=== PATIENT | female | born 1965 | race Caucasian/White ===

== ENCOUNTER 2017-06-18 19:01 | Inpatient (IN) | payer OTHER, MEDICAID ==
[2017-06-18] MEDS: IV NORMAL SALINE 1000ML BAG 1,000 ML IV ×2 (19:24→20:11)
[2017-06-18] MEDS: INSULIN REGULAR 100 UNIT/ML 3ML VIAL. IV ×2 (19:39→20:33)
[2017-06-18 19:45] LABS: INR 1.6 (0.8-1.1); PARTIAL THROMBOPLASTIN TIME 26 SEC (24-38); PROTHROMBIN TIME PATIENT 18.1 SEC (11.7-14.0)
[2017-06-18 19:46] LABS: BILIRUBIN,URINE NEGATIVE (NEG); CLARITY,URINE CLEAR; COLOR,URINE YELLOW; GLUCOSE,URINE >=1000 mg/dL (NEG); NITRITE,URINE NEGATIVE (NEG); PROTEIN,URINE NEGATIVE (NEG-TRACE); UROBILINOGEN,URINE 0.2 mg/dL (0.2 mg/dL)
[2017-06-18 19:50] LABS: ACETONE SM POS (NEG)
[2017-06-18 19:56] LABS: BACTERIA,URINE FEW /HPF (0-FEW); RBC,URINE OCC /HPF (0-2); SQUAMOUS EPITHELIAL CELL,UR OCC /LPF; WBC,URINE OCC /HPF (0-4)
[2017-06-18 19:58] LABS: BASO # 0.1 x10^3/uL (0.0-0.2); BASO % 0 % (0-3); EOS % 0 % (0-3); HEMATOCRIT 35.2 % (36.0-47.0); HEMOGLOBIN 10.5 g/dL (12.0-15.5); LYMPH # 0.7 x10^3/uL (1.0-4.8); LYMPH % 3 % (24-48); MEAN CORPUSCULAR HEMOGLOBIN 32 pg (25-35); MEAN CORPUSCULAR HGB CONC 30 g/dL (31-37); MEAN CORPUSCULAR VOLUME 106 fL (79-100); MONO # 0.8 x10^3/uL (0.0-1.1); MONO % 3 % (0-9); NEUT # 22.3 x10^3uL (1.8-7.7); NEUT % 94 % (31-73); PLATELET COUNT 352 x10^3/uL (140-400); RED BLOOD COUNT 3.32 x10^6/uL (3.50-5.40); RED CELL DISTRIBUTION WIDTH 17.3 % (11.5-14.5); WHITE BLOOD COUNT 23.9 x10^3/uL (4.0-11.0)
[2017-06-18 20:02] LABS: ALBUMIN 2.9 g/dL (3.4-5.0); ALBUMIN/GLOBULIN RATIO 0.7 (1.0-1.7); ALK PHOS 169 U/L (46-116); ALT (SGPT) 25 U/L (14-59); ANION GAP 31 (6-14); AST (SGOT) 25 U/L (15-37); BLOOD UREA NITROGEN 41 mg/dL (7-20); BUN/CREATININE RATIO 23 (6-20); CALCIUM 9.5 mg/dL (8.5-10.1); CHLORIDE 91 mmol/L (98-107); CKMB INDEX 3.8 % (0-4); CKMB MASS 6.1 ng/mL (0.0-3.6); CREATINE KINASE 160 U/L (26-192); CREATININE 1.8 mg/dL (0.6-1.0); DIRECT BILIRUBIN 0.2 mg/dL (0.0-0.2); GFR 29.7; MAGNESIUM 2.3 mg/dL (1.8-2.4); SODIUM 129 mmol/L (136-145); TOTAL BILIRUBIN 0.7 mg/dL (0.2-1.0); TOTAL PROTEIN 7.3 g/dL (6.4-8.2)
[2017-06-18 20:02] LABS: NT-PRO BNP 1556 pg/mL (0-124)
[2017-06-18 20:07] LABS: CARBON DIOXIDE 7 mmol/L (21-32)
[2017-06-18 20:19] LABS: LACTIC ACID 5.1 mmol/L (0.4-2.0)
[2017-06-18 20:24] LABS: GLUCOSE 1148 mg/dL (70-99)
[2017-06-18] MEDS ORDERED: CALCIUM GLUCONATE 1,000 MG/10 ML VIAL. (20:27)
[2017-06-18 20:33] LABS: ADD MAN DIFF? YES
[2017-06-18] MEDS: INSULIN,REGULAR 150 UNIT DRIP 150 ML IV (20:38)
[2017-06-18] MEDS: SODIUM BICARBONATE VIAL 150 MEQ in IV STERILE WATER 1,000 ML IV (21:00)
[2017-06-18] MEDS: VECURONIUM BOLUS 10 MG VIAL. IV (21:06)
[2017-06-18 21:17] LABS: % BANDS 9 % (0-9); % LYMPHS 2 % (24-48); % MONOS 1 % (0-10); % SEGS 88 % (35-66); PLATELET CLUMP PRESENT; PLT ESTIMATE ADEQUATE (ADEQUATE)
[2017-06-18] MEDS ORDERED: IV NORMAL SALINE 1000ML BAG 1,000 ML IV (21:17)
[2017-06-18 21:18] LABS: TOXIC VACUOLATION PRESENT
[2017-06-18] MEDS ORDERED: 0.9 % SODIUM CHLORIDE 10 ML DISP.SYRIN. IV (21:30)
[2017-06-18] MEDS ORDERED: MINERAL OIL/PETROLATUM,WHITE OPHTH OINT 3.5GM TUBE. OU (21:30)
[2017-06-18] MEDS ORDERED: PROPOFOL 100 ML IV (21:30)
[2017-06-18] MEDS ORDERED: MEPERIDINE PF 25 MG/ML VIAL. IV (21:30)
[2017-06-18 21:36] LABS: BASE EXCESS ABG -25 mmol/L (-3-3); HCO3 ABG 8 mmol/L (21-28); PCO2 ABG 43 mmHg (35-46); PO2 ABG 87 mmHg (75-108); SAT O2 ABG 88 % (92-99)
[2017-06-18 21:43] LABS: PH ABG 6.87 (7.35-7.45)
[2017-06-18] MEDS: NOREPINEPHRIN PREMIX 250 ML IV (22:00)
[2017-06-18 22:04] LABS: AMYLASE 316 U/L (25-115)
[2017-06-18 22:06] LABS: BARBITURATES NEG (NEG); BENZODIAZEPINES NEG (NEG); CANNABINOIDS NEG (NEG); COCAINE NEG (NEG); METHADONE NEG (NEG); OPIATES NEG (NEG); PHENCYCLIDINE NEG (NEG)
[2017-06-18 22:08] LABS: AMPHETAMINE/METHAMPHETAMINE NEG (NEG); ETHANOL, URINE NEG (NEG)
[2017-06-18 22:35] LABS: BASE EXCESS COOX -22 mmol/L (-3-3); CARBON MONOXIDE 0.3 % (0.0-1.9); HCO3 COOX 9 mmol/L (21-28); METHEMOGLOBIN 0.5 % (0.0-1.9); OXYHEMOGLOBIN 75.9 %; PCO2 COOX 39 mmHg (35-46); PO2 COOX 57 mmHg (75-108); SAT O2 COOX 77 % (92-99); TOTAL HEMOGLOBIN 10.6 g/dL
[2017-06-18] MEDS ORDERED: SODIUM BICARB ADULT 8.4% 50 MEQ/50 ML DISP.SYRIN. (22:41)
[2017-06-18 22:50] LABS: HEMATOCRIT 31.5 % (36.0-47.0); HEMOGLOBIN 9.4 g/dL (12.0-15.5); MEAN CORPUSCULAR HEMOGLOBIN 31 pg (25-35); MEAN CORPUSCULAR HGB CONC 30 g/dL (31-37); MEAN CORPUSCULAR VOLUME 105 fL (79-100); PLATELET COUNT 339 x10^3/uL (140-400); RED CELL DISTRIBUTION WIDTH 17.4 % (11.5-14.5); WHITE BLOOD COUNT 22.5 x10^3/uL (4.0-11.0)
[2017-06-18 23:33] LABS: GLUCOSE 874 mg/dL (70-99)
[2017-06-18] MEDS: ENOXAPARIN 40 MG/0.4 ML SYRINGE. SQ (23:45)
[2017-06-18 23:59] LABS: PH COOX 6.97 (7.35-7.45)
[2017-06-19] MEDS: fentaNYL PF VIAL 100 MCG/2 ML VIAL IV (00:28)
[2017-06-19] MEDS: MIDAZOLAM 100mg/100ml NS BAG 100 ML IV ×2 (00:38→16:22)
[2017-06-19] MEDS: VECURONIUM BOLUS 10 MG VIAL. IV ×2 (01:38→12:32)
[2017-06-19] MEDS: VANCOMYCIN 2 GM in IV 1/2 NORMAL SALINE 500 ML IV (01:39)
[2017-06-19 01:45] LABS: GLUCOSE 649 mg/dL (70-99)
[2017-06-19] MEDS: VANCOMYCIN PER PHARMACY MC ×2 (02:24→15:49)
[2017-06-19 02:50] LABS: ANION GAP 19 (6-14); BLOOD UREA NITROGEN 39 mg/dL (7-20); CALCIUM 8.5 mg/dL (8.5-10.1); CARBON DIOXIDE 21 mmol/L (21-32); CHLORIDE 105 mmol/L (98-107); CREATININE 1.7 mg/dL (0.6-1.0); GFR 31.7; PHOSPHORUS 3.5 mg/dL (2.6-4.7)
[2017-06-19 02:50] LABS: TROPONINI 18.468 ng/mL (0.000-0.055)
[2017-06-19 02:54] LABS: GLUCOSE 552 mg/dL (70-99)
[2017-06-19 02:56] LABS: POTASSIUM 3.7 mmol/L (3.5-5.1); SODIUM 145 mmol/L (136-145)
[2017-06-19 05:04] LABS: BASE EXCESS COOX -4 mmol/L (-3-3); BODY TEMP COOX 90.1 DEG; CARBON MONOXIDE 0.5 % (0.0-1.9); CORRECTED PCO2 COOX 38 mmHg; CORRECTED PH COOX 7.36; CORRECTED PO2 COOX 26 mmHg; HCO3 COOX 22 mmol/L (21-28); METHEMOGLOBIN 0.1 % (0.0-1.9); PCO2 COOX 47 mmHg (35-46); PH COOX 7.29 (7.35-7.45); TOTAL HEMOGLOBIN 11.3 g/dL
[2017-06-19 05:29] LABS: PO2 COOX < 42 mmHg (75-108); SAT O2 COOX 66 % (92-99)
[2017-06-19 05:30] LABS: FIO2 COOX 100
[2017-06-19] MEDS: INSULIN REGULAR VIAL 150 UNIT in 0.9 % SODIUM CHLORIDE 150ML 150 ML IV (06:00)
[2017-06-19] MEDS: NOREPINEPHRIN PREMIX 250 ML IV (06:01)
[2017-06-19 06:05] LABS: BASO % 0 % (0-3); EOS % 0 % (0-3); HEMATOCRIT 32.1 % (36.0-47.0); HEMOGLOBIN 10.6 g/dL (12.0-15.5); LYMPH # 0.7 x10^3/uL (1.0-4.8); LYMPH % 5 % (24-48); MEAN CORPUSCULAR HEMOGLOBIN 31 pg (25-35); MEAN CORPUSCULAR HGB CONC 33 g/dL (31-37); MONO # 0.3 x10^3/uL (0.0-1.1); MONO % 2 % (0-9); NEUT % 92 % (31-73); PLATELET COUNT 335 x10^3/uL (140-400); WHITE BLOOD COUNT 14.1 x10^3/uL (4.0-11.0)
[2017-06-19 06:22] LABS: ADD MAN DIFF? YES; MEAN CORPUSCULAR VOLUME 94 fL (79-100)
[2017-06-19 06:33] LABS: BASE EXCESS ABG -3 mmol/L (-3-3); BODY TEMP ABG 91.2 DEG; CORRECTED PCO2 ABG 41 mmHg; CORRECTED PH ABG 7.36; CORRECTED PO2 ABG 30 mmHg; HCO3 ABG 24 mmol/L (21-28); SAT O2 ABG 71 % (92-99)
[2017-06-19 06:34] LABS: PCO2 ABG 49 mmHg (35-46); PH ABG 7.31 (7.35-7.45)
[2017-06-19 06:35] LABS: ALBUMIN 2.3 g/dL (3.4-5.0); ALBUMIN/GLOBULIN RATIO 0.7 (1.0-1.7); ALK PHOS 151 U/L (46-116); ALT (SGPT) 177 U/L (14-59); ANION GAP 18 (6-14); AST (SGOT) 344 U/L (15-37); BLOOD UREA NITROGEN 34 mg/dL (7-20); BUN/CREATININE RATIO 23 (6-20); CALCIUM 8.4 mg/dL (8.5-10.1); CARBON DIOXIDE 23 mmol/L (21-32); CHLORIDE 107 mmol/L (98-107); CREATININE 1.5 mg/dL (0.6-1.0); GFR 36.6; GLUCOSE 403 mg/dL (70-99); PHOSPHORUS 3.9 mg/dL (2.6-4.7); POTASSIUM 3.8 mmol/L (3.5-5.1); SODIUM 148 mmol/L (136-145); TOTAL BILIRUBIN 0.4 mg/dL (0.2-1.0); TOTAL PROTEIN 5.7 g/dL (6.4-8.2)
[2017-06-19 06:36] LABS: PO2 ABG 40 mmHg (75-108)
[2017-06-19 06:39] LABS: TROPONINI 27.533 ng/mL (0.000-0.055)
[2017-06-19 06:41] LABS: INR 1.4 (0.8-1.1); PROTHROMBIN TIME PATIENT 16.1 SEC (11.7-14.0)
[2017-06-19 06:56] LABS: LACTIC ACID 4.5 mmol/L (0.4-2.0)
[2017-06-19] MEDS: SODIUM BICARBONATE VIAL 150 MEQ in IV STERILE WATER 1,000 ML IV (09:19)
[2017-06-19 09:25] LABS: CHOLESTEROL 201 mg/dL (0-200); HDLC 35 mg/dL (40-60); LDLC 129 mg/dL (0-100); NON-HDL CHOLESTEROL 166 mg/dL (0-129); TRIGLYCERIDES 183 mg/dL (0-150); VLDLC 37 mg/dL (0-40)
[2017-06-19 09:26] LABS: CHOLESTEROL/HDL RATIO 5.7
[2017-06-19] MEDS: ACETAMINOPHEN 650 MG/20.3 ML SOLUTION. NG ×4 (09:56→16:42)
[2017-06-19] MEDS: ALBUMIN HUMAN 5% 500 ML IV (09:56)
[2017-06-19] MEDS: MEROPENEM 500 MG in IV NORMAL SALINE 50ML 50 ML IV (09:56)
[2017-06-19] MEDS: MICAFUNGIN 100 MG in IV DEXTROSE 5% 100 ML IV (09:56)
[2017-06-19] MEDS: FAMOTIDINE 20 MG/2 ML VIAL IVP ×2 (09:57→21:38)
[2017-06-19] MEDS: ASPIRIN 300 MG SUPP.RECT PR (09:57)
[2017-06-19 11:05] LABS: % BANDS 22 % (0-9); % LYMPHS 5 % (24-48); % MONOS 2 % (0-10); % SEGS 71 % (35-66); PLT ESTIMATE ADEQUATE (ADEQUATE)
[2017-06-19 13:13] LABS: BASE EXCESS ABG 4 mmol/L (-3-3); CORRECTED PCO2 ABG 26 mmHg; CORRECTED PO2 ABG 286 mmHg; HCO3 ABG 25 mmol/L (21-28); PCO2 ABG 27 mmHg (35-46); PO2 ABG 290 mmHg (75-108); SAT O2 ABG 99 % (92-99)
[2017-06-19 13:22] LABS: PH ABG 7.58 (7.35-7.45)
[2017-06-19 13:25] LABS: ANION GAP 11 (6-14); BLOOD UREA NITROGEN 34 mg/dL (7-20); CALCIUM 7.9 mg/dL (8.5-10.1); CARBON DIOXIDE 29 mmol/L (21-32); CHLORIDE 108 mmol/L (98-107); CREATININE 1.3 mg/dL (0.6-1.0); GFR 43.2; GLUCOSE 154 mg/dL (70-99); MAGNESIUM 1.6 mg/dL (1.8-2.4); PHOSPHORUS 1.9 mg/dL (2.6-4.7); POTASSIUM 3.3 mmol/L (3.5-5.1); SODIUM 148 mmol/L (136-145)
[2017-06-19 13:49] LABS: LACTIC ACID 4.2 mmol/L (0.4-2.0)
[2017-06-19] MEDS: MEROPENEM 1 GM in IV NORMAL SALINE 100ML 100 ML IV ×2 (16:42→21:40)
[2017-06-19] MEDS: VANCOMYCIN 1.5 GM in IV 1/2 NORMAL SALINE 500 ML IV (16:42)
[2017-06-19] MEDS: POTASSIUM CHLORIDE 20 MEQ/15 ML ORAL LIQUID. PEG (17:42)
[2017-06-19 19:28] LABS: BASE EXCESS ABG 5 mmol/L (-3-3); BODY TEMP ABG 98.9 DEG; CORRECTED PCO2 ABG 27 mmHg; CORRECTED PO2 ABG 63 mmHg; HCO3 ABG 26 mmol/L (21-28); PCO2 ABG 27 mmHg (35-46); PO2 ABG 62 mmHg (75-108); SAT O2 ABG 94 % (92-99)
[2017-06-19 20:34] LABS: HEMATOCRIT 27.7 % (36.0-47.0); HEMOGLOBIN 9.5 g/dL (12.0-15.5); MEAN CORPUSCULAR HEMOGLOBIN 32 pg (25-35); MEAN CORPUSCULAR HGB CONC 35 g/dL (31-37); MEAN CORPUSCULAR VOLUME 92 fL (79-100); PLATELET COUNT 253 x10^3/uL (140-400); RED BLOOD COUNT 3.01 x10^6/uL (3.50-5.40); RED CELL DISTRIBUTION WIDTH 15.5 % (11.5-14.5); WHITE BLOOD COUNT 10.6 x10^3/uL (4.0-11.0)
[2017-06-19 21:01] LABS: ANION GAP 9 (6-14); BLOOD UREA NITROGEN 31 mg/dL (7-20); CALCIUM 8.1 mg/dL (8.5-10.1); CARBON DIOXIDE 29 mmol/L (21-32); CHLORIDE 107 mmol/L (98-107); CREATININE 1.2 mg/dL (0.6-1.0); GFR 47.4; GLUCOSE 173 mg/dL (70-99); MAGNESIUM 1.7 mg/dL (1.8-2.4); PHOSPHORUS 2.3 mg/dL (2.6-4.7); POTASSIUM 3.9 mmol/L (3.5-5.1); SODIUM 145 mmol/L (136-145)
[2017-06-19] MEDS ORDERED: ACETAMINOPHEN 650 MG SUPP.RECT. PR (21:30)
[2017-06-19 23:14] LABS: MRSA BY PCR Negative (Negative)
[2017-06-20] MEDS ORDERED: VANCOMYCIN 1.5 GM in IV 1/2 NORMAL SALINE 500 ML IV (01:00)
[2017-06-20 02:52] LABS: FIO2 ABG 40
[2017-06-20] MEDS: NOREPINEPHRIN PREMIX 250 ML IV (02:53)
[2017-06-20] MEDS: MIDAZOLAM 100mg/100ml NS BAG 100 ML IV (05:46)
[2017-06-20] MEDS: MEROPENEM 1 GM in IV NORMAL SALINE 100ML 100 ML IV ×3 (05:46→21:31)
[2017-06-20] MEDS ORDERED: silver sulfADIAZINE 1% CREAM 25GM TUBE. TP (05:56)
[2017-06-20] MEDS ORDERED: LIDOCAINE 1% PF 30 ML VIAL. (05:57)
[2017-06-20 06:09] LABS: HEMATOCRIT 26.2 % (36.0-47.0); HEMOGLOBIN 8.8 g/dL (12.0-15.5); MEAN CORPUSCULAR HEMOGLOBIN 31 pg (25-35); MEAN CORPUSCULAR HGB CONC 34 g/dL (31-37); MEAN CORPUSCULAR VOLUME 93 fL (79-100); PLATELET COUNT 206 x10^3/uL (140-400); RED BLOOD COUNT 2.81 x10^6/uL (3.50-5.40); RED CELL DISTRIBUTION WIDTH 16.1 % (11.5-14.5); WHITE BLOOD COUNT 9.9 x10^3/uL (4.0-11.0)
[2017-06-20] MEDS: INSULIN REGULAR VIAL 150 UNIT in 0.9 % SODIUM CHLORIDE 150ML 150 ML IV (06:14)
[2017-06-20 06:52] LABS: ANION GAP 11 (6-14); BLOOD UREA NITROGEN 24 mg/dL (7-20); CALCIUM 7.7 mg/dL (8.5-10.1); CARBON DIOXIDE 27 mmol/L (21-32); CHLORIDE 110 mmol/L (98-107); CREATININE 1.1 mg/dL (0.6-1.0); GFR 52.4; GLUCOSE 216 mg/dL (70-99); MAGNESIUM 1.6 mg/dL (1.8-2.4); POTASSIUM 3.4 mmol/L (3.5-5.1); SODIUM 148 mmol/L (136-145)
[2017-06-20] MEDS ORDERED: PROCHLORPERAZINE 10 MG/2 ML VIAL. IV (07:00)
[2017-06-20] MEDS ORDERED: MORPHINE SULFATE 4 MG/ML DISP.SYRIN. IV (07:00)
[2017-06-20] MEDS ORDERED: LIDOCAINE 1% PF 2 ML VIAL. ID (07:00)
[2017-06-20] MEDS ORDERED: HYDROmorphone 2 MG/ML VIAL IV (07:00)
[2017-06-20] MEDS: IV RINGERS,LACTATED 1000ML 1,000 ML IV (07:00)
[2017-06-20] MEDS ORDERED: fentaNYL PF VIAL 100 MCG/2 ML VIAL IV ×2 (07:00)
[2017-06-20 08:37] LABS: TROPONINI 11.928 ng/mL (0.000-0.055)
[2017-06-20 08:47] LABS: BASE EXCESS ABG 7 mmol/L (-3-3); HCO3 ABG 29 mmol/L (21-28); PCO2 ABG 34 mmHg (35-46); PO2 ABG 103 mmHg (75-108); SAT O2 ABG 98 % (92-99)
[2017-06-20 08:50] LABS: FIO2 ABG 60; PH ABG 7.55 (7.35-7.45)
[2017-06-20] MEDS: FAMOTIDINE 20 MG/2 ML VIAL IVP ×2 (09:02→21:31)
[2017-06-20] MEDS: POTASSIUM CHLORIDE 20 MEQ/15 ML ORAL LIQUID. PEG (09:02)
[2017-06-20] MEDS: MICAFUNGIN 100 MG in IV DEXTROSE 5% 100 ML IV (09:02)
[2017-06-20] MEDS: ASPIRIN CHEWABLE 81 MG TABLET. PO (09:02)
[2017-06-20 11:36] LABS: BASE EXCESS ABG 5 mmol/L (-3-3); HCO3 ABG 28 mmol/L (21-28); PCO2 ABG 35 mmHg (35-46); PH ABG 7.53 (7.35-7.45); PO2 ABG 75 mmHg (75-108); SAT O2 ABG 95 % (92-99)
[2017-06-20 11:42] LABS: FIO2 ABG 50
[2017-06-20 11:48] LABS: HEMATOCRIT 25.4 % (36.0-47.0); HEMOGLOBIN 8.6 g/dL (12.0-15.5); MEAN CORPUSCULAR HEMOGLOBIN 32 pg (25-35); MEAN CORPUSCULAR HGB CONC 34 g/dL (31-37); MEAN CORPUSCULAR VOLUME 94 fL (79-100); PLATELET COUNT 194 x10^3/uL (140-400); RED BLOOD COUNT 2.71 x10^6/uL (3.50-5.40); RED CELL DISTRIBUTION WIDTH 16.1 % (11.5-14.5); WHITE BLOOD COUNT 8.7 x10^3/uL (4.0-11.0)
[2017-06-20 11:53] LABS: ANION GAP 8 (6-14); BLOOD UREA NITROGEN 22 mg/dL (7-20); CALCIUM 7.9 mg/dL (8.5-10.1); CARBON DIOXIDE 29 mmol/L (21-32); CHLORIDE 111 mmol/L (98-107); GFR 58.5; GLUCOSE 169 mg/dL (70-99); MAGNESIUM 1.7 mg/dL (1.8-2.4); PHOSPHORUS 2.1 mg/dL (2.6-4.7); POTASSIUM 3.8 mmol/L (3.5-5.1); SODIUM 148 mmol/L (136-145)
[2017-06-20 11:55] LABS: VANC TR 13.8 mcg/mL (10.0-20.0)
[2017-06-20 12:05] LABS: ALK PHOS 111 U/L (46-116); ALT (SGPT) 104 U/L (14-59); AST (SGOT) 114 U/L (15-37); DIRECT BILIRUBIN 0.1 mg/dL (0.0-0.2); TOTAL BILIRUBIN 0.5 mg/dL (0.2-1.0); TOTAL PROTEIN 5.3 g/dL (6.4-8.2)
[2017-06-20 12:17] LABS: LACTIC ACID 1.6 mmol/L (0.4-2.0)
[2017-06-20] MEDS: VANCOMYCIN PER PHARMACY MC (12:38)
[2017-06-20] MEDS: MAGNESIUM SULFATE 2GM 50 ML IV (13:32)
[2017-06-20] MEDS: VANCOMYCIN 1.5 GM in IV 1/2 NORMAL SALINE 500 ML IV (13:32)
[2017-06-20] MEDS: HEPARIN 25,000UTS/500ML PREMIX 500 ML IV (13:41)
[2017-06-20] MEDS ORDERED: PROPOFOL 20 ML IV (15:11)
[2017-06-20] MEDS ORDERED: ONDANSETRON PF 4 MG/2 ML VIAL. (15:11)
[2017-06-20] MEDS ORDERED: ROCURONIUM 50 MG/5 ML VIAL. (16:03)
[2017-06-20] MEDS ORDERED: DESFLURANE 31 TO 60 MINUTES IH (16:16)
[2017-06-20] MEDS: MAGNESIUM SULFATE 1GM 100 ML IV (17:49)
[2017-06-20] MEDS ORDERED: ELECTROLYTE (ICU) PROTOCOL. MC (21:30)
[2017-06-21] MEDS: MIDAZOLAM 100mg/100ml NS BAG 100 ML IV (04:06)
[2017-06-21 04:13] LABS: POC GLUCOSE 389 mg/dL (70-99)
[2017-06-21 04:13] LABS: POC GLUCOSE 244 mg/dL (70-99)
[2017-06-21 04:13] LABS: POC GLUCOSE 448 mg/dL (70-99)
[2017-06-21 04:13] LABS: POC GLUCOSE 193 mg/dL (70-99)
[2017-06-21 04:13] LABS: POC GLUCOSE 163 mg/dL (70-99)
[2017-06-21 04:14] LABS: POC GLUCOSE 103 mg/dL (70-99)
[2017-06-21 04:14] LABS: POC GLUCOSE 144 mg/dL (70-99)
[2017-06-21 04:14] LABS: POC GLUCOSE 117 mg/dL (70-99)
[2017-06-21 04:14] LABS: POC GLUCOSE 158 mg/dL (70-99)
[2017-06-21 04:14] LABS: POC GLUCOSE 228 mg/dL (70-99)
[2017-06-21 04:14] LABS: POC GLUCOSE 189 mg/dL (70-99)
[2017-06-21 04:14] LABS: POC GLUCOSE 122 mg/dL (70-99)
[2017-06-21 04:14] LABS: POC GLUCOSE 116 mg/dL (70-99)
[2017-06-21 04:14] LABS: POC GLUCOSE 149 mg/dL (70-99)
[2017-06-21 04:14] LABS: POC GLUCOSE 137 mg/dL (70-99)
[2017-06-21 04:14] LABS: POC GLUCOSE 124 mg/dL (70-99)
[2017-06-21 04:14] LABS: POC GLUCOSE 119 mg/dL (70-99)
[2017-06-21 04:14] LABS: POC GLUCOSE 107 mg/dL (70-99)
[2017-06-21 04:14] LABS: POC GLUCOSE 215 mg/dL (70-99)
[2017-06-21 04:14] LABS: POC GLUCOSE 144 mg/dL (70-99)
[2017-06-21 04:14] LABS: POC GLUCOSE 152 mg/dL (70-99)
[2017-06-21 04:14] LABS: POC GLUCOSE 237 mg/dL (70-99)
[2017-06-21 04:14] LABS: POC GLUCOSE 119 mg/dL (70-99)
[2017-06-21 04:14] LABS: POC GLUCOSE 212 mg/dL (70-99)
[2017-06-21 04:14] LABS: POC GLUCOSE 215 mg/dL (70-99)
[2017-06-21 04:14] LABS: POC GLUCOSE 118 mg/dL (70-99)
[2017-06-21 04:14] LABS: POC GLUCOSE 170 mg/dL (70-99)
[2017-06-21 04:14] LABS: POC GLUCOSE 175 mg/dL (70-99)
[2017-06-21 04:14] LABS: POC GLUCOSE 167 mg/dL (70-99)
[2017-06-21 04:14] LABS: POC GLUCOSE 124 mg/dL (70-99)
[2017-06-21 04:15] LABS: POC GLUCOSE 164 mg/dL (70-99)
[2017-06-21 04:15] LABS: POC GLUCOSE 127 mg/dL (70-99)
[2017-06-21 04:15] LABS: POC GLUCOSE 150 mg/dL (70-99)
[2017-06-21 04:15] LABS: POC GLUCOSE 130 mg/dL (70-99)
[2017-06-21 04:15] LABS: POC GLUCOSE 171 mg/dL (70-99)
[2017-06-21 04:15] LABS: POC GLUCOSE 175 mg/dL (70-99)
[2017-06-21 04:15] LABS: POC GLUCOSE 127 mg/dL (70-99)
[2017-06-21 04:43] LABS: POC GLUCOSE 136 mg/dL (70-99)
[2017-06-21] MEDS: MEROPENEM 1 GM in IV NORMAL SALINE 100ML 100 ML IV ×3 (05:56→21:34)
[2017-06-21] MEDS: VANCOMYCIN 1.5 GM in IV 1/2 NORMAL SALINE 500 ML IV (05:56)
[2017-06-21 06:46] LABS: ADD MAN DIFF? NO
[2017-06-21 06:50] LABS: BASO % 0 % (0-3); EOS # 0.1 x10^3/uL (0.0-0.7); EOS % 1 % (0-3); HEMATOCRIT 26.2 % (36.0-47.0); HEMOGLOBIN 8.8 g/dL (12.0-15.5); LYMPH # 0.9 x10^3/uL (1.0-4.8); LYMPH % 10 % (24-48); MEAN CORPUSCULAR HEMOGLOBIN 32 pg (25-35); MEAN CORPUSCULAR HGB CONC 34 g/dL (31-37); MEAN CORPUSCULAR VOLUME 95 fL (79-100); MONO # 0.2 x10^3/uL (0.0-1.1); MONO % 3 % (0-9); NEUT # 7.9 x10^3uL (1.8-7.7); NEUT % 86 % (31-73); PLATELET COUNT 173 x10^3/uL (140-400); RED BLOOD COUNT 2.77 x10^6/uL (3.50-5.40); RED CELL DISTRIBUTION WIDTH 16.4 % (11.5-14.5); WHITE BLOOD COUNT 9.1 x10^3/uL (4.0-11.0)
[2017-06-21 06:53] LABS: ANION GAP 6 (6-14); BLOOD UREA NITROGEN 18 mg/dL (7-20); CALCIUM 8.7 mg/dL (8.5-10.1); CARBON DIOXIDE 30 mmol/L (21-32); CHLORIDE 111 mmol/L (98-107); CREATININE 0.9 mg/dL (0.6-1.0); GLUCOSE 180 mg/dL (70-99); POTASSIUM 3.7 mmol/L (3.5-5.1); SODIUM 147 mmol/L (136-145)
[2017-06-21 08:37] LABS: BASE EXCESS ABG 2 mmol/L (-3-3); HCO3 ABG 26 mmol/L (21-28); PCO2 ABG 40 mmHg (35-46); PH ABG 7.44 (7.35-7.45); PO2 ABG 69 mmHg (75-108); SAT O2 ABG 94 % (92-99)
[2017-06-21] MEDS ORDERED: DEXTROSE 50% 25 GM / 50ML DISP.SYRIN. IV (08:45)
[2017-06-21] MEDS: FAMOTIDINE 20 MG/2 ML VIAL IVP ×2 (08:46→21:01)
[2017-06-21] MEDS: ASPIRIN CHEWABLE 81 MG TABLET. PO (08:46)
[2017-06-21] MEDS: MICAFUNGIN 100 MG in IV DEXTROSE 5% 100 ML IV (08:46)
[2017-06-21 09:33] LABS: FIO2 ABG 50
[2017-06-21 11:35] LABS: CD4 CD8 RATIO SEE SEPARATE REPORT
[2017-06-21] MEDS ORDERED: INSULIN LISPRO 300 UNITS/3 ML INSULN.PEN. SQ (12:00)
[2017-06-21] MEDS: FUROSEMIDE 40 MG/4 ML VIAL. IVP (12:32)
[2017-06-21] MEDS: ASCORBIC ACID 500 MG TABLET PO (12:32)
[2017-06-21] MEDS: MULTIVITAMINS,THERAPEUTIC 5 ML ORAL LIQUID. PEG (12:32)
[2017-06-21] MEDS: INSULIN LISPRO 300 UNITS/3 ML INSULN.PEN. SQ ×2 (12:34→16:55)
[2017-06-21] MEDS: VANCOMYCIN PER PHARMACY MC (13:03)
[2017-06-21 16:24] LABS: HIV-1 RNA BY PCR <20 copies/mL (.)
[2017-06-21] MEDS: NITROGLYCERIN OINT 1 GM PACKET. TP (16:49)
[2017-06-21] MEDS: METOPROLOL TARTRATE 5 MG/5 ML VIAL. IVP (16:49)
[2017-06-22] MEDS: VANCOMYCIN 1.5 GM in IV 1/2 NORMAL SALINE 500 ML IV ×2 (00:19→17:48)
[2017-06-22] MEDS: METOPROLOL TARTRATE 5 MG/5 ML VIAL. IVP ×5 (00:20→23:51)
[2017-06-22] MEDS: NITROGLYCERIN OINT 1 GM PACKET. TP ×5 (00:21→23:50)
[2017-06-22] MEDS: INSULIN LISPRO 300 UNITS/3 ML INSULN.PEN. SQ ×5 (01:11→23:53)
[2017-06-22] MEDS: ACETAMINOPHEN 650 MG/20.3 ML SOLUTION. NG (02:03)
[2017-06-22 02:09] LABS: UNFRACTIONATED HEPARIN TESTING 0.92 IU/mL (0.30-0.70)
[2017-06-22] MEDS: MIDAZOLAM 100mg/100ml NS BAG 100 ML IV (02:44)
[2017-06-22] MEDS: MEROPENEM 1 GM in IV NORMAL SALINE 100ML 100 ML IV ×3 (05:37→22:27)
[2017-06-22 05:50] LABS: ADD MAN DIFF? NO
[2017-06-22 06:00] LABS: BASO % 0 % (0-3); EOS # 0.1 x10^3/uL (0.0-0.7); EOS % 1 % (0-3); HEMATOCRIT 27.8 % (36.0-47.0); HEMOGLOBIN 9.2 g/dL (12.0-15.5); LYMPH % 11 % (24-48); MEAN CORPUSCULAR HEMOGLOBIN 32 pg (25-35); MEAN CORPUSCULAR HGB CONC 33 g/dL (31-37); MEAN CORPUSCULAR VOLUME 95 fL (79-100); MONO # 0.4 x10^3/uL (0.0-1.1); MONO % 5 % (0-9); NEUT # 7.2 x10^3uL (1.8-7.7); NEUT % 83 % (31-73); PLATELET COUNT 154 x10^3/uL (140-400); RED BLOOD COUNT 2.92 x10^6/uL (3.50-5.40); RED CELL DISTRIBUTION WIDTH 16.3 % (11.5-14.5); WHITE BLOOD COUNT 8.7 x10^3/uL (4.0-11.0)
[2017-06-22] MEDS ORDERED: INSULIN LISPRO 300 UNITS/3 ML INSULN.PEN. SQ ×2 (06:00→08:00)
[2017-06-22 06:12] LABS: IONIZED CALCIUM 1.11 mmol/L (1.13-1.32)
[2017-06-22 06:23] LABS: ALBUMIN 1.8 g/dL (3.4-5.0); ALBUMIN/GLOBULIN RATIO 0.5 (1.0-1.7); ALK PHOS 139 U/L (46-116); ALT (SGPT) 69 U/L (14-59); ANION GAP 8 (6-14); AST (SGOT) 36 U/L (15-37); BLOOD UREA NITROGEN 21 mg/dL (7-20); BUN/CREATININE RATIO 23 (6-20); CALCIUM 8.5 mg/dL (8.5-10.1); CARBON DIOXIDE 29 mmol/L (21-32); CHLORIDE 107 mmol/L (98-107); CREATININE 0.9 mg/dL (0.6-1.0); GLUCOSE 421 mg/dL (70-99); MAGNESIUM 2.1 mg/dL (1.8-2.4); POTASSIUM 4.3 mmol/L (3.5-5.1); SODIUM 144 mmol/L (136-145); TOTAL BILIRUBIN 0.7 mg/dL (0.2-1.0); TOTAL PROTEIN 5.7 g/dL (6.4-8.2)
[2017-06-22] MEDS: MULTIVITAMINS,THERAPEUTIC 5 ML ORAL LIQUID. PEG (08:59)
[2017-06-22] MEDS: ASCORBIC ACID 500 MG TABLET PO (08:59)
[2017-06-22] MEDS: ASPIRIN CHEWABLE 81 MG TABLET. PO (08:59)
[2017-06-22] MEDS: FUROSEMIDE 40 MG/4 ML VIAL. IVP (08:59)
[2017-06-22] MEDS: MICAFUNGIN 100 MG in IV DEXTROSE 5% 100 ML IV (09:00)
[2017-06-22] MEDS: FAMOTIDINE 20 MG/2 ML VIAL IVP ×2 (09:00→21:09)
[2017-06-22 09:28] LABS: BASE EXCESS ABG 1 mmol/L (-3-3); HCO3 ABG 23 mmol/L (21-28); PCO2 ABG 29 mmHg (35-46); PH ABG 7.52 (7.35-7.45); PO2 ABG 120 mmHg (75-108); SAT O2 ABG 99 % (92-99)
[2017-06-22 09:32] LABS: FIO2 ABG 40
[2017-06-22] MEDS: POLYETHYLENE GLYCOL 3350 17 GM PACKET. PO (09:48)
[2017-06-22 09:56] LABS: UNFRACTIONATED HEPARIN TESTING 0.79 IU/mL (0.30-0.70)
[2017-06-22] MEDS: HEPARIN 25,000UTS/500ML PREMIX 500 ML IV (15:47)
[2017-06-22 16:13] LABS: UNFRACTIONATED HEPARIN TESTING 0.59 IU/mL (0.30-0.70)
[2017-06-22] MEDS: INSULIN GLARGINE 300 UNITS/3 ML INSULN.PEN. SQ (21:10)
[2017-06-22 21:13] LABS: POC GLUCOSE 279 mg/dL (70-99)
[2017-06-23 05:12] LABS: POC GLUCOSE 158 mg/dL (70-99)
[2017-06-23 05:12] LABS: POC GLUCOSE 353 mg/dL (70-99)
[2017-06-23 05:12] LABS: POC GLUCOSE 324 mg/dL (70-99)
[2017-06-23 05:12] LABS: POC GLUCOSE 341 mg/dL (70-99)
[2017-06-23 05:13] LABS: POC GLUCOSE 172 mg/dL (70-99)
[2017-06-23 05:13] LABS: POC GLUCOSE 350 mg/dL (70-99)
[2017-06-23 05:13] LABS: POC GLUCOSE 391 mg/dL (70-99)
[2017-06-23 05:13] LABS: POC GLUCOSE 340 mg/dL (70-99)
[2017-06-23 05:13] LABS: POC GLUCOSE 407 mg/dL (70-99)
[2017-06-23 05:13] LABS: POC GLUCOSE 153 mg/dL (70-99)
[2017-06-23] MEDS: NITROGLYCERIN OINT 1 GM PACKET. TP ×4 (06:02→23:33)
[2017-06-23] MEDS: METOPROLOL TARTRATE 5 MG/5 ML VIAL. IVP ×4 (06:02→23:33)
[2017-06-23] MEDS: MEROPENEM 1 GM in IV NORMAL SALINE 100ML 100 ML IV ×3 (06:03→21:34)
[2017-06-23] MEDS: INSULIN LISPRO 300 UNITS/3 ML INSULN.PEN. SQ ×4 (06:10→23:34)
[2017-06-23] MEDS: ASCORBIC ACID 500 MG TABLET PO (08:18)
[2017-06-23] MEDS: ACETAMINOPHEN 650 MG/20.3 ML SOLUTION. NG (08:18)
[2017-06-23] MEDS: DOCUSATE SODIUM 100 MG CAPSULE. PO (08:18)
[2017-06-23] MEDS: MULTIVITAMINS,THERAPEUTIC 5 ML ORAL LIQUID. PEG (08:19)
[2017-06-23] MEDS: FUROSEMIDE 40 MG/4 ML VIAL. IVP (08:19)
[2017-06-23] MEDS: FAMOTIDINE 20 MG/2 ML VIAL IVP ×2 (08:19→21:06)
[2017-06-23] MEDS: MICAFUNGIN 100 MG in IV DEXTROSE 5% 100 ML IV (08:19)
[2017-06-23] MEDS: ASPIRIN CHEWABLE 81 MG TABLET. PO (08:20)
[2017-06-23] MEDS ORDERED: MINERAL OIL/PETROLATUM,WHITE OPHTH OINT 3.5GM TUBE. OU (08:45)
[2017-06-23 08:58] LABS: BASE EXCESS ABG 6 mmol/L (-3-3); HCO3 ABG 29 mmol/L (21-28); PCO2 ABG 38 mmHg (35-46); PO2 ABG 104 mmHg (75-108); SAT O2 ABG 98 % (92-99)
[2017-06-23 09:17] LABS: FIO2 ABG 40
[2017-06-23] MEDS: VANCOMYCIN PER PHARMACY MC ×2 (10:28→10:31)
[2017-06-23] MEDS: ANTI-COAG MONITOR BY PHARMACY. MC (10:38)
[2017-06-23] MEDS: VANCOMYCIN 1.5 GM in IV 1/2 NORMAL SALINE 500 ML IV (11:54)
[2017-06-23] MEDS ORDERED: PROPOFOL 100 ML IV (19:00)
[2017-06-23] MEDS: CHLORHEXIDINE 0.12% 15 ML MOUTHWASH. MM (21:06)
[2017-06-23] MEDS: INSULIN GLARGINE 300 UNITS/3 ML INSULN.PEN. SQ (21:12)
[2017-06-24 05:45] LABS: ADD MAN DIFF? NO
[2017-06-24] MEDS: NITROGLYCERIN OINT 1 GM PACKET. TP ×3 (05:51→18:22)
[2017-06-24] MEDS: MEROPENEM 1 GM in IV NORMAL SALINE 100ML 100 ML IV ×3 (05:52→21:36)
[2017-06-24] MEDS: METOPROLOL TARTRATE 5 MG/5 ML VIAL. IVP ×3 (05:52→18:21)
[2017-06-24] MEDS: INSULIN LISPRO 300 UNITS/3 ML INSULN.PEN. SQ ×5 (05:56→18:25)
[2017-06-24 05:57] LABS: BASO % 0 % (0-3); EOS # 0.3 x10^3/uL (0.0-0.7); EOS % 3 % (0-3); HEMATOCRIT 28.7 % (36.0-47.0); HEMOGLOBIN 9.5 g/dL (12.0-15.5); LYMPH # 1.4 x10^3/uL (1.0-4.8); LYMPH % 14 % (24-48); MEAN CORPUSCULAR HEMOGLOBIN 31 pg (25-35); MEAN CORPUSCULAR HGB CONC 33 g/dL (31-37); MEAN CORPUSCULAR VOLUME 93 fL (79-100); MONO # 1.1 x10^3/uL (0.0-1.1); MONO % 12 % (0-9); NEUT # 6.9 x10^3uL (1.8-7.7); NEUT % 71 % (31-73); PLATELET COUNT 210 x10^3/uL (140-400); RED BLOOD COUNT 3.08 x10^6/uL (3.50-5.40); WHITE BLOOD COUNT 9.7 x10^3/uL (4.0-11.0)
[2017-06-24 06:04] LABS: UNFRACTIONATED HEPARIN TESTING 0.81 IU/mL (0.30-0.70)
[2017-06-24 06:16] LABS: ALBUMIN 1.9 g/dL (3.4-5.0); ALBUMIN/GLOBULIN RATIO 0.5 (1.0-1.7); ALK PHOS 148 U/L (46-116); ALT (SGPT) 48 U/L (14-59); ANION GAP 7 (6-14); AST (SGOT) 23 U/L (15-37); BLOOD UREA NITROGEN 17 mg/dL (7-20); BUN/CREATININE RATIO 28 (6-20); CALCIUM 8.7 mg/dL (8.5-10.1); CARBON DIOXIDE 31 mmol/L (21-32); CHLORIDE 105 mmol/L (98-107); CREATININE 0.6 mg/dL (0.6-1.0); GFR 105.4; GLUCOSE 238 mg/dL (70-99); POTASSIUM 3.8 mmol/L (3.5-5.1); SODIUM 143 mmol/L (136-145); TOTAL BILIRUBIN 0.5 mg/dL (0.2-1.0); VANC TR 10.5 mcg/mL (10.0-20.0)
[2017-06-24] MEDS: VANCOMYCIN PER PHARMACY MC ×2 (06:38→06:42)
[2017-06-24] MEDS: VANCOMYCIN 1.5 GM in IV 1/2 NORMAL SALINE 500 ML IV (06:46)
[2017-06-24 07:51] LABS: BASE EXCESS ABG 8 mmol/L (-3-3); HCO3 ABG 31 mmol/L (21-28); PCO2 ABG 40 mmHg (35-46); PH ABG 7.51 (7.35-7.45); PO2 ABG 100 mmHg (75-108); SAT O2 ABG 97 % (92-99)
[2017-06-24 07:53] LABS: FIO2 ABG 35
[2017-06-24] MEDS: MULTIVITAMINS,THERAPEUTIC 5 ML ORAL LIQUID. PEG (08:06)
[2017-06-24] MEDS: FAMOTIDINE 20 MG/2 ML VIAL IVP ×2 (08:07→20:31)
[2017-06-24] MEDS: MICAFUNGIN 100 MG in IV DEXTROSE 5% 100 ML IV (08:07)
[2017-06-24] MEDS: ASPIRIN CHEWABLE 81 MG TABLET. PO (08:07)
[2017-06-24] MEDS: ASCORBIC ACID 500 MG TABLET PO (08:07)
[2017-06-24] MEDS: FUROSEMIDE 40 MG/4 ML VIAL. IVP (08:07)
[2017-06-24] MEDS: CHLORHEXIDINE 0.12% 15 ML MOUTHWASH. MM ×2 (08:08→20:31)
[2017-06-24] MEDS ORDERED: BISACODYL 10 MG SUPP.RECT. PR (09:00)
[2017-06-24] MEDS ORDERED: DEXTROSE 50% 25 GM / 50ML DISP.SYRIN. IV (10:15)
[2017-06-24] MEDS: ANTI-COAG MONITOR BY PHARMACY. MC ×2 (10:24→10:31)
[2017-06-24] MEDS: HEPARIN 25,000UTS/500ML PREMIX 500 ML IV (13:27)
[2017-06-24] MEDS: fentaNYL PF VIAL 100 MCG/2 ML VIAL IV (15:20)
[2017-06-24] MEDS ORDERED: VANCOMYCIN 1.5 GM in IV 1/2 NORMAL SALINE 500 ML IV (18:00)
[2017-06-24 20:32] LABS: POC GLUCOSE 106 mg/dL (70-99)
[2017-06-24] MEDS: INSULIN GLARGINE 300 UNITS/3 ML INSULN.PEN. SQ (20:33)
[2017-06-24 20:52] LABS: POC GLUCOSE 219 mg/dL (70-99)
[2017-06-24 20:52] LABS: POC GLUCOSE 219 mg/dL (70-99)
[2017-06-24 20:52] LABS: POC GLUCOSE 321 mg/dL (70-99)
[2017-06-24 20:52] LABS: POC GLUCOSE 163 mg/dL (70-99)
[2017-06-24 20:52] LABS: POC GLUCOSE 202 mg/dL (70-99)
[2017-06-24 20:52] LABS: POC GLUCOSE 296 mg/dL (70-99)
[2017-06-24 20:52] LABS: POC GLUCOSE 372 mg/dL (70-99)
[2017-06-24 20:55] LABS: POC GLUCOSE 244 mg/dL (70-99)
[2017-06-24 22:57] LABS: UNFRACTIONATED HEPARIN TESTING 0.17 IU/mL (0.30-0.70)
[2017-06-25] MEDS: SODIUM BICARBONATE VIAL 50 MEQ in IV 1/2 NORMAL SALINE 1,000 ML IV ×3 (00:25→22:12)
[2017-06-25] MEDS: METOPROLOL TARTRATE 5 MG/5 ML VIAL. IVP ×4 (00:26→17:24)
[2017-06-25] MEDS: NITROGLYCERIN OINT 1 GM PACKET. TP ×4 (00:27→17:24)
[2017-06-25] MEDS: INSULIN LISPRO 300 UNITS/3 ML INSULN.PEN. SQ ×7 (00:28→22:18)
[2017-06-25 00:32] LABS: POC GLUCOSE 275 mg/dL (70-99)
[2017-06-25] MEDS: HEPARIN for IV BOLUS 10,000 UNIT/10 ML VIAL. IV ×2 (00:35→06:18)
[2017-06-25] MEDS: ACETAMINOPHEN 650 MG/20.3 ML SOLUTION. NG (02:44)
[2017-06-25] MEDS: MEROPENEM 1 GM in IV NORMAL SALINE 100ML 100 ML IV ×3 (05:32→22:14)
[2017-06-25 05:42] LABS: ADD MAN DIFF? NO
[2017-06-25 05:44] LABS: BASO # 0.1 x10^3/uL (0.0-0.2); BASO % 1 % (0-3); EOS # 0.3 x10^3/uL (0.0-0.7); EOS % 4 % (0-3); HEMATOCRIT 27.6 % (36.0-47.0); HEMOGLOBIN 9.2 g/dL (12.0-15.5); LYMPH # 1.4 x10^3/uL (1.0-4.8); LYMPH % 15 % (24-48); MEAN CORPUSCULAR HEMOGLOBIN 31 pg (25-35); MEAN CORPUSCULAR HGB CONC 33 g/dL (31-37); MEAN CORPUSCULAR VOLUME 94 fL (79-100); MONO # 1.5 x10^3/uL (0.0-1.1); MONO % 16 % (0-9); NEUT # 6.3 x10^3uL (1.8-7.7); NEUT % 65 % (31-73); PLATELET COUNT 248 x10^3/uL (140-400); RED BLOOD COUNT 2.95 x10^6/uL (3.50-5.40); RED CELL DISTRIBUTION WIDTH 16.1 % (11.5-14.5); WHITE BLOOD COUNT 9.6 x10^3/uL (4.0-11.0)
[2017-06-25 05:59] LABS: UNFRACTIONATED HEPARIN TESTING 0.19 IU/mL (0.30-0.70)
[2017-06-25 06:02] LABS: ANION GAP 4 (6-14); BLOOD UREA NITROGEN 17 mg/dL (7-20); CALCIUM 9.3 mg/dL (8.5-10.1); CARBON DIOXIDE 34 mmol/L (21-32); CHLORIDE 104 mmol/L (98-107); CREATININE 0.7 mg/dL (0.6-1.0); GFR 88.2; GLUCOSE 260 mg/dL (70-99); POTASSIUM 3.8 mmol/L (3.5-5.1); SODIUM 142 mmol/L (136-145)
[2017-06-25] MEDS: ASCORBIC ACID 500 MG TABLET PO (08:15)
[2017-06-25] MEDS: FUROSEMIDE 40 MG/4 ML VIAL. IVP (08:16)
[2017-06-25] MEDS: CHLORHEXIDINE 0.12% 15 ML MOUTHWASH. MM ×2 (08:16→21:00)
[2017-06-25] MEDS: ASPIRIN CHEWABLE 81 MG TABLET. PO (08:16)
[2017-06-25] MEDS: MULTIVITAMINS,THERAPEUTIC 5 ML ORAL LIQUID. PEG (08:16)
[2017-06-25] MEDS: FAMOTIDINE 20 MG/2 ML VIAL IVP ×2 (08:16→22:12)
[2017-06-25] MEDS: MICAFUNGIN 100 MG in IV DEXTROSE 5% 100 ML IV (08:17)
[2017-06-25] MEDS: ANTI-COAG MONITOR BY PHARMACY. MC (09:24)
[2017-06-25 09:26] LABS: BASE EXCESS ABG 9 mmol/L (-3-3); HCO3 ABG 32 mmol/L (21-28); PCO2 ABG 36 mmHg (35-46); PO2 ABG 70 mmHg (75-108); SAT O2 ABG 95 % (92-99)
[2017-06-25 09:28] LABS: PH ABG 7.56 (7.35-7.45)
[2017-06-25 09:29] LABS: FIO2 ABG 35
[2017-06-25 11:05] LABS: BASE EXCESS ABG 9 mmol/L (-3-3); HCO3 ABG 32 mmol/L (21-28); PCO2 ABG 37 mmHg (35-46); PO2 ABG 64 mmHg (75-108); SAT O2 ABG 94 % (92-99)
[2017-06-25 11:07] LABS: FIO2 ABG 35; PH ABG 7.55 (7.35-7.45)
[2017-06-25 13:07] LABS: UNFRACTIONATED HEPARIN TESTING 0.27 IU/mL (0.30-0.70)
[2017-06-25] MEDS: methylPREDNISolone SOD SUCC PF 40 MG/ML VIAL. IV ×2 (14:39→22:12)
[2017-06-25] MEDS ORDERED: INSULIN LISPRO 300 UNITS/3 ML INSULN.PEN. SQ (18:00)
[2017-06-25] MEDS: ATORVASTATIN CALCIUM 20 MG TABLET PO (20:32)
[2017-06-25] MEDS ORDERED: INSULIN GLARGINE 300 UNITS/3 ML INSULN.PEN. SQ (21:00)
[2017-06-25] MEDS: INSULIN GLARGINE 300 UNITS/3 ML INSULN.PEN. SQ (22:18)
[2017-06-26] MEDS: NITROGLYCERIN OINT 1 GM PACKET. TP ×5 (00:07→23:33)
[2017-06-26] MEDS: METOPROLOL TARTRATE 5 MG/5 ML VIAL. IVP ×5 (00:07→23:34)
[2017-06-26 04:44] LABS: POC GLUCOSE 323 mg/dL (70-99)
[2017-06-26 04:44] LABS: POC GLUCOSE 284 mg/dL (70-99)
[2017-06-26 04:44] LABS: POC GLUCOSE 322 mg/dL (70-99)
[2017-06-26 04:45] LABS: POC GLUCOSE 224 mg/dL (70-99)
[2017-06-26] MEDS: MEROPENEM 1 GM in IV NORMAL SALINE 100ML 100 ML IV (05:39)
[2017-06-26] MEDS: methylPREDNISolone SOD SUCC PF 40 MG/ML VIAL. IV ×3 (05:40→22:16)
[2017-06-26] MEDS: SODIUM BICARBONATE VIAL 50 MEQ in IV 1/2 NORMAL SALINE 1,000 ML IV (05:41)
[2017-06-26] MEDS: INSULIN LISPRO 300 UNITS/3 ML INSULN.PEN. SQ ×4 (05:48→23:34)
[2017-06-26] MEDS: ASCORBIC ACID 500 MG TABLET PO (08:00)
[2017-06-26] MEDS: ASPIRIN ENTERIC COATED 81 MG TABLET.DR. PO (08:00)
[2017-06-26] MEDS: FAMOTIDINE 20 MG/2 ML VIAL IVP ×2 (08:01→20:36)
[2017-06-26] MEDS: CHLORHEXIDINE 0.12% 15 ML MOUTHWASH. MM ×2 (08:01→20:53)
[2017-06-26] MEDS: FUROSEMIDE 40 MG/4 ML VIAL. IVP (08:01)
[2017-06-26] MEDS: MULTIVITAMINS,THERAPEUTIC 5 ML ORAL LIQUID. PEG (08:01)
[2017-06-26] MEDS: IV 1/2 NORMAL SALINE 1,000 ML IV ×2 (09:45→18:26)
[2017-06-26] MEDS: INSULIN GLARGINE 300 UNITS/3 ML INSULN.PEN. SQ ×2 (10:05→20:37)
[2017-06-26 20:39] LABS: POC GLUCOSE 228 mg/dL (70-99)
[2017-06-26] MEDS: ATORVASTATIN CALCIUM 20 MG TABLET PO (20:53)
[2017-06-27] MEDS: IV 1/2 NORMAL SALINE 1,000 ML IV ×2 (04:28→18:02)
[2017-06-27] MEDS ORDERED: methylPREDNISolone SOD SUCC PF 40 MG/ML VIAL. (06:00)
[2017-06-27] MEDS: METOPROLOL TARTRATE 5 MG/5 ML VIAL. IVP ×4 (06:00→23:58)
[2017-06-27] MEDS: NITROGLYCERIN OINT 1 GM PACKET. TP ×3 (06:00→18:03)
[2017-06-27 08:12] LABS: POC GLUCOSE 153 mg/dL (70-99)
[2017-06-27 08:13] LABS: POC GLUCOSE 321 mg/dL (70-99)
[2017-06-27 08:13] LABS: POC GLUCOSE 299 mg/dL (70-99)
[2017-06-27 08:13] LABS: POC GLUCOSE 283 mg/dL (70-99)
[2017-06-27 08:14] LABS: POC GLUCOSE 213 mg/dL (70-99)
[2017-06-27 08:51] LABS: ADD MAN DIFF? NO
[2017-06-27] MEDS: CHLORHEXIDINE 0.12% 15 ML MOUTHWASH. MM ×2 (09:00→21:00)
[2017-06-27] MEDS: FUROSEMIDE 40 MG/4 ML VIAL. IVP (09:00)
[2017-06-27] MEDS: ASPIRIN 300 MG SUPP.RECT PR (09:00)
[2017-06-27 09:03] LABS: ANION GAP 4 (6-14); BLOOD UREA NITROGEN 21 mg/dL (7-20); CALCIUM 8.6 mg/dL (8.5-10.1); CARBON DIOXIDE 33 mmol/L (21-32); CHLORIDE 104 mmol/L (98-107); CREATININE 0.6 mg/dL (0.6-1.0); GFR 105.4; GLUCOSE 133 mg/dL (70-99); POTASSIUM 3.4 mmol/L (3.5-5.1); SODIUM 141 mmol/L (136-145)
[2017-06-27 10:14] LABS: BASO % 0 % (0-3); EOS % 0 % (0-3); HEMATOCRIT 26.5 % (36.0-47.0); HEMOGLOBIN 8.9 g/dL (12.0-15.5); LYMPH # 0.9 x10^3/uL (1.0-4.8); LYMPH % 10 % (24-48); MEAN CORPUSCULAR HEMOGLOBIN 32 pg (25-35); MEAN CORPUSCULAR HGB CONC 33 g/dL (31-37); MEAN CORPUSCULAR VOLUME 94 fL (79-100); MONO # 0.7 x10^3/uL (0.0-1.1); MONO % 7 % (0-9); NEUT # 7.4 x10^3uL (1.8-7.7); NEUT % 83 % (31-73); PLATELET COUNT 329 x10^3/uL (140-400); RED BLOOD COUNT 2.82 x10^6/uL (3.50-5.40); RED CELL DISTRIBUTION WIDTH 16.7 % (11.5-14.5)
[2017-06-27] MEDS: FAMOTIDINE 20 MG/2 ML VIAL IVP ×2 (10:57→23:33)
[2017-06-27] MEDS: NYSTATIN TOPICAL POWDER 15GM BOTTLE. TP (10:59)
[2017-06-27] MEDS: ENOXAPARIN 40 MG/0.4 ML SYRINGE. SQ (10:59)
[2017-06-27] MEDS: INSULIN LISPRO 300 UNITS/3 ML INSULN.PEN. SQ ×2 (11:30→18:04)
[2017-06-27 12:07] LABS: POC GLUCOSE 131 mg/dL (70-99)
[2017-06-27] MEDS: POTASSIUM CHLORIDE 20MEQ 50 ML IV (15:54)
[2017-06-27 17:08] LABS: POC GLUCOSE 231 mg/dL (70-99)
[2017-06-27] MEDS: ATORVASTATIN CALCIUM 20 MG TABLET PO (23:34)
[2017-06-27] MEDS: methylPREDNISolone SOD SUCC PF 40 MG/ML VIAL. IV (23:34)
[2017-06-27] MEDS: fentaNYL PF VIAL 100 MCG/2 ML VIAL IV (23:50)
[2017-06-27] MEDS: INSULIN GLARGINE 300 UNITS/3 ML INSULN.PEN. SQ (23:52)
[2017-06-28] MEDS: NITROGLYCERIN OINT 1 GM PACKET. TP ×5 (00:01→23:58)
[2017-06-28] MEDS: IV 1/2 NORMAL SALINE 1,000 ML IV ×3 (03:33→23:59)
[2017-06-28 03:50] LABS: POC GLUCOSE 237 mg/dL (70-99)
[2017-06-28] MEDS: METOPROLOL TARTRATE 5 MG/5 ML VIAL. IVP ×4 (06:32→23:58)
[2017-06-28 06:51] LABS: ANION GAP 6 (6-14); BLOOD UREA NITROGEN 24 mg/dL (7-20); CALCIUM 8.1 mg/dL (8.5-10.1); CARBON DIOXIDE 32 mmol/L (21-32); CHLORIDE 102 mmol/L (98-107); CREATININE 0.7 mg/dL (0.6-1.0); GFR 88.2; GLUCOSE 195 mg/dL (70-99); POTASSIUM 3.7 mmol/L (3.5-5.1); SODIUM 140 mmol/L (136-145)
[2017-06-28 06:54] LABS: BASO % 0 % (0-3); EOS % 0 % (0-3); HEMATOCRIT 27.2 % (36.0-47.0); HEMOGLOBIN 9.1 g/dL (12.0-15.5); LYMPH # 0.7 x10^3/uL (1.0-4.8); LYMPH % 9 % (24-48); MEAN CORPUSCULAR HEMOGLOBIN 31 pg (25-35); MEAN CORPUSCULAR HGB CONC 33 g/dL (31-37); MEAN CORPUSCULAR VOLUME 93 fL (79-100); MONO # 0.4 x10^3/uL (0.0-1.1); MONO % 5 % (0-9); NEUT # 6.7 x10^3uL (1.8-7.7); NEUT % 87 % (31-73); PLATELET COUNT 374 x10^3/uL (140-400); RED BLOOD COUNT 2.93 x10^6/uL (3.50-5.40); RED CELL DISTRIBUTION WIDTH 16.7 % (11.5-14.5); WHITE BLOOD COUNT 7.7 x10^3/uL (4.0-11.0)
[2017-06-28 06:56] LABS: ADD MAN DIFF? YES
[2017-06-28] MEDS: CHLORHEXIDINE 0.12% 15 ML MOUTHWASH. MM (08:04)
[2017-06-28] MEDS: methylPREDNISolone SOD SUCC PF 40 MG/ML VIAL. IV ×2 (08:34→21:20)
[2017-06-28] MEDS: FUROSEMIDE 40 MG/4 ML VIAL. IVP (08:34)
[2017-06-28] MEDS: FAMOTIDINE 20 MG/2 ML VIAL IVP ×2 (08:34→21:21)
[2017-06-28] MEDS: ASPIRIN 325 MG TABLET PO (08:35)
[2017-06-28] MEDS: INSULIN LISPRO 300 UNITS/3 ML INSULN.PEN. SQ ×3 (08:36→16:01)
[2017-06-28] MEDS: fentaNYL PF VIAL 100 MCG/2 ML VIAL IV ×2 (10:37→21:20)
[2017-06-28 10:41] LABS: % BANDS 3 % (0-9); % LYMPHS 6 % (24-48); % MONOS 6 % (0-10); % SEGS 85 % (35-66); ANISOCYTOSIS PRESENT; PLT ESTIMATE ADEQUATE (ADEQUATE)
[2017-06-28 10:42] LABS: POLYCHROMASIA PRESENT
[2017-06-28] MEDS: ENOXAPARIN 40 MG/0.4 ML SYRINGE. SQ (12:58)
[2017-06-28] MEDS: HALOPERIDOL LACTATE 5 MG/ML VIAL. IVP (16:02)
[2017-06-28] MEDS: ATORVASTATIN CALCIUM 20 MG TABLET PO (21:21)
[2017-06-28] MEDS: INSULIN GLARGINE 300 UNITS/3 ML INSULN.PEN. SQ (21:45)
[2017-06-29] MEDS: NITROGLYCERIN OINT 1 GM PACKET. TP ×3 (05:49→17:27)
[2017-06-29] MEDS: METOPROLOL TARTRATE 5 MG/5 ML VIAL. IVP ×3 (05:49→17:27)
[2017-06-29 06:02] LABS: ADD MAN DIFF? NO
[2017-06-29 06:07] LABS: BASO % 0 % (0-3); EOS % 0 % (0-3); LYMPH # 0.6 x10^3/uL (1.0-4.8); LYMPH % 7 % (24-48); MEAN CORPUSCULAR HEMOGLOBIN 31 pg (25-35); MEAN CORPUSCULAR HGB CONC 33 g/dL (31-37); MEAN CORPUSCULAR VOLUME 93 fL (79-100); MONO # 0.4 x10^3/uL (0.0-1.1); MONO % 4 % (0-9); NEUT # 7.7 x10^3uL (1.8-7.7); NEUT % 89 % (31-73); PLATELET COUNT 423 x10^3/uL (140-400); RED BLOOD COUNT 3.22 x10^6/uL (3.50-5.40); RED CELL DISTRIBUTION WIDTH 16.5 % (11.5-14.5); WHITE BLOOD COUNT 8.7 x10^3/uL (4.0-11.0)
[2017-06-29 06:16] LABS: ANION GAP 8 (6-14); BLOOD UREA NITROGEN 17 mg/dL (7-20); CALCIUM 8.1 mg/dL (8.5-10.1); CARBON DIOXIDE 28 mmol/L (21-32); CHLORIDE 103 mmol/L (98-107); CREATININE 0.6 mg/dL (0.6-1.0); GFR 105.4; GLUCOSE 215 mg/dL (70-99); POTASSIUM 3.7 mmol/L (3.5-5.1); SODIUM 139 mmol/L (136-145)
[2017-06-29] MEDS: IV 1/2 NORMAL SALINE 1,000 ML IV ×2 (08:05→21:00)
[2017-06-29] MEDS: INSULIN LISPRO 300 UNITS/3 ML INSULN.PEN. SQ ×3 (08:06→16:30)
[2017-06-29] MEDS: ASPIRIN 325 MG TABLET PO (09:26)
[2017-06-29] MEDS: FAMOTIDINE 20 MG/2 ML VIAL IVP ×2 (09:27→21:00)
[2017-06-29] MEDS: methylPREDNISolone SOD SUCC PF 40 MG/ML VIAL. IV (09:27)
[2017-06-29] MEDS: FUROSEMIDE 40 MG/4 ML VIAL. IVP (09:27)
[2017-06-29] MEDS: ENOXAPARIN 40 MG/0.4 ML SYRINGE. SQ (11:51)
[2017-06-29] MEDS: ATORVASTATIN CALCIUM 20 MG TABLET PO (21:00)
[2017-06-29] MEDS: INSULIN GLARGINE 300 UNITS/3 ML INSULN.PEN. SQ (21:02)
[2017-06-29] MEDS: fentaNYL PF VIAL 100 MCG/2 ML VIAL IV (21:35)
[2017-06-30] MEDS: METOPROLOL TARTRATE 5 MG/5 ML VIAL. IVP ×5 (00:19→23:31)
[2017-06-30] MEDS: NITROGLYCERIN OINT 1 GM PACKET. TP ×5 (00:20→23:30)
[2017-06-30 07:03] LABS: POC GLUCOSE 134 mg/dL (70-99)
[2017-06-30 07:03] LABS: POC GLUCOSE 214 mg/dL (70-99)
[2017-06-30 07:03] LABS: POC GLUCOSE 82 mg/dL (70-99)
[2017-06-30 07:03] LABS: POC GLUCOSE 143 mg/dL (70-99)
[2017-06-30 07:03] LABS: POC GLUCOSE 232 mg/dL (70-99)
[2017-06-30 07:03] LABS: POC GLUCOSE 184 mg/dL (70-99)
[2017-06-30 07:03] LABS: POC GLUCOSE 157 mg/dL (70-99)
[2017-06-30] MEDS: FUROSEMIDE 40 MG/4 ML VIAL. IVP (08:28)
[2017-06-30] MEDS: IV 1/2 NORMAL SALINE 1,000 ML IV ×2 (08:29→23:29)
[2017-06-30] MEDS: methylPREDNISolone SOD SUCC PF 40 MG/ML VIAL. IV (08:29)
[2017-06-30] MEDS: FAMOTIDINE 20 MG/2 ML VIAL IVP ×2 (08:29→20:49)
[2017-06-30] MEDS: ASPIRIN 325 MG TABLET PO (08:29)
[2017-06-30] MEDS: INSULIN LISPRO 300 UNITS/3 ML INSULN.PEN. SQ ×3 (08:43→17:13)
[2017-06-30] MEDS: ENOXAPARIN 40 MG/0.4 ML SYRINGE. SQ (11:23)
[2017-06-30] MEDS: ATORVASTATIN CALCIUM 20 MG TABLET PO (20:49)
[2017-06-30] MEDS: fentaNYL PF VIAL 100 MCG/2 ML VIAL IV (20:50)
[2017-06-30] MEDS: VANCOMYCIN 125 MG/2.5 ML ORAL SOLUTION. PO (20:50)
[2017-06-30] MEDS: INSULIN GLARGINE 300 UNITS/3 ML INSULN.PEN. SQ (21:06)
[2017-07-01 05:14] LABS: POC GLUCOSE 74 mg/dL (70-99)
[2017-07-01] MEDS: METOPROLOL TARTRATE 5 MG/5 ML VIAL. IVP ×4 (05:34→23:43)
[2017-07-01] MEDS: NITROGLYCERIN OINT 1 GM PACKET. TP ×2 (05:34→12:00)
[2017-07-01 05:58] LABS: ADD MAN DIFF? NO
[2017-07-01 06:03] LABS: BASO # 0.1 x10^3/uL (0.0-0.2); BASO % 1 % (0-3); EOS # 0.1 x10^3/uL (0.0-0.7); EOS % 1 % (0-3); HEMATOCRIT 28.9 % (36.0-47.0); HEMOGLOBIN 9.4 g/dL (12.0-15.5); LYMPH % 17 % (24-48); MEAN CORPUSCULAR HEMOGLOBIN 30 pg (25-35); MEAN CORPUSCULAR HGB CONC 32 g/dL (31-37); MEAN CORPUSCULAR VOLUME 93 fL (79-100); MONO # 0.6 x10^3/uL (0.0-1.1); MONO % 5 % (0-9); NEUT # 9.1 x10^3uL (1.8-7.7); NEUT % 76 % (31-73); PLATELET COUNT 470 x10^3/uL (140-400); WHITE BLOOD COUNT 11.9 x10^3/uL (4.0-11.0)
[2017-07-01 06:24] LABS: ANION GAP 6 (6-14); BLOOD UREA NITROGEN 19 mg/dL (7-20); CALCIUM 8.4 mg/dL (8.5-10.1); CARBON DIOXIDE 30 mmol/L (21-32); CHLORIDE 105 mmol/L (98-107); CREATININE 0.6 mg/dL (0.6-1.0); GFR 105.4; GLUCOSE 151 mg/dL (70-99); POTASSIUM 3.5 mmol/L (3.5-5.1); SODIUM 141 mmol/L (136-145)
[2017-07-01] MEDS: ASPIRIN 325 MG TABLET PO ×2 (08:00→11:34)
[2017-07-01] MEDS: INSULIN LISPRO 300 UNITS/3 ML INSULN.PEN. SQ ×3 (08:49→17:01)
[2017-07-01] MEDS: ENOXAPARIN 40 MG/0.4 ML SYRINGE. SQ (11:34)
[2017-07-01] MEDS: FUROSEMIDE 40 MG/4 ML VIAL. IVP (11:35)
[2017-07-01] MEDS: FAMOTIDINE 20 MG/2 ML VIAL IVP ×2 (11:35→20:42)
[2017-07-01] MEDS: VANCOMYCIN 125 MG/2.5 ML ORAL SOLUTION. PO ×4 (11:36→20:59)
[2017-07-01 12:20] LABS: C DIFF BY PCR Positive (Negative)
[2017-07-01] MEDS: NITROGLYCERIN 0.1MG/HR PATCH. TD (15:46)
[2017-07-01] MEDS: IV 1/2 NORMAL SALINE 1,000 ML IV (18:32)
[2017-07-01] MEDS: fentaNYL PF VIAL 100 MCG/2 ML VIAL IV ×2 (20:42→23:44)
[2017-07-01] MEDS: ATORVASTATIN CALCIUM 20 MG TABLET PO (20:42)
[2017-07-01] MEDS: INSULIN GLARGINE 300 UNITS/3 ML INSULN.PEN. SQ (20:58)
[2017-07-01 21:00] LABS: POC GLUCOSE 123 mg/dL (70-99)
[2017-07-02 04:05] LABS: POC GLUCOSE 95 mg/dL (70-99)
[2017-07-02 04:05] LABS: POC GLUCOSE 233 mg/dL (70-99)
[2017-07-02 04:05] LABS: POC GLUCOSE 159 mg/dL (70-99)
[2017-07-02 04:05] LABS: POC GLUCOSE 226 mg/dL (70-99)
[2017-07-02 05:11] LABS: POC GLUCOSE 169 mg/dL (70-99)
[2017-07-02] MEDS: METOPROLOL TARTRATE 5 MG/5 ML VIAL. IVP ×2 (06:01→12:02)
[2017-07-02] MEDS: fentaNYL PF VIAL 100 MCG/2 ML VIAL IV ×2 (06:02→08:56)
[2017-07-02] MEDS: IV 1/2 NORMAL SALINE 1,000 ML IV ×2 (06:04→13:49)
[2017-07-02] MEDS: methylPREDNISolone SOD SUCC PF 40 MG/ML VIAL. IV (08:50)
[2017-07-02] MEDS: FAMOTIDINE 20 MG/2 ML VIAL IVP (08:50)
[2017-07-02] MEDS: FUROSEMIDE 40 MG/4 ML VIAL. IVP (08:50)
[2017-07-02] MEDS: VANCOMYCIN 125 MG/2.5 ML ORAL SOLUTION. PO ×4 (08:51→21:20)
[2017-07-02] MEDS: INSULIN LISPRO 300 UNITS/3 ML INSULN.PEN. SQ ×4 (08:52→17:36)
[2017-07-02 08:54] LABS: POC GLUCOSE 200 mg/dL (70-99)
[2017-07-02] MEDS: NITROGLYCERIN 0.1MG/HR PATCH. TD (12:01)
[2017-07-02] MEDS: ENOXAPARIN 40 MG/0.4 ML SYRINGE. SQ (12:01)
[2017-07-02 12:17] LABS: POC GLUCOSE 154 mg/dL (70-99)
[2017-07-02] MEDS: BARIUM SULFATE 40% (APPLE) 148 GM PWD. PO (15:16)
[2017-07-02] MEDS: LISINOPRIL 5 MG TABLET. PO (16:09)
[2017-07-02 16:21] LABS: POC GLUCOSE 168 mg/dL (70-99)
[2017-07-02] MEDS ORDERED: ATORVASTATIN CALCIUM 20 MG TABLET PO (21:00)
[2017-07-02] MEDS: HYDROcodone/APAP 5/325MG 1 TAB TABLET PO (21:19)
[2017-07-02] MEDS: FAMOTIDINE 20 MG TABLET. FT (21:20)
[2017-07-02] MEDS: ATORVASTATIN CALCIUM 20 MG TABLET PO (21:20)
[2017-07-02] MEDS: INSULIN GLARGINE 300 UNITS/3 ML INSULN.PEN. SQ (21:27)
[2017-07-02 21:28] LABS: POC GLUCOSE 181 mg/dL (70-99)
[2017-07-03] MEDS: HYDROcodone/APAP 5/325MG 1 TAB TABLET PO ×3 (06:24→20:55)
[2017-07-03] MEDS: INSULIN LISPRO 300 UNITS/3 ML INSULN.PEN. SQ ×6 (07:30→16:40)
[2017-07-03 07:44] LABS: POC GLUCOSE 83 mg/dL (70-99)
[2017-07-03] MEDS ORDERED: cefTRIAXone SODIUM 2 GM in IV DEXTROSE 5% 100 ML IV (08:45)
[2017-07-03] MEDS: VANCOMYCIN 125 MG/2.5 ML ORAL SOLUTION. PO ×4 (09:00→20:55)
[2017-07-03] MEDS: REGADENOSON 0.4 MG/5 ML DISP.SYRIN. IV (09:08)
[2017-07-03 11:04] LABS: POC GLUCOSE 89 mg/dL (70-99)
[2017-07-03 11:05] LABS: ADD MAN DIFF? NO
[2017-07-03 11:09] LABS: BASO % 0 % (0-3); EOS % 0 % (0-3); HEMATOCRIT 33.7 % (36.0-47.0); LYMPH # 1.3 x10^3/uL (1.0-4.8); LYMPH % 8 % (24-48); MEAN CORPUSCULAR HEMOGLOBIN 31 pg (25-35); MEAN CORPUSCULAR HGB CONC 33 g/dL (31-37); MEAN CORPUSCULAR VOLUME 93 fL (79-100); MONO # 0.9 x10^3/uL (0.0-1.1); MONO % 5 % (0-9); NEUT # 14.3 x10^3uL (1.8-7.7); NEUT % 86 % (31-73); PLATELET COUNT 545 x10^3/uL (140-400); RED BLOOD COUNT 3.61 x10^6/uL (3.50-5.40); RED CELL DISTRIBUTION WIDTH 16.7 % (11.5-14.5); WHITE BLOOD COUNT 16.6 x10^3/uL (4.0-11.0)
[2017-07-03 11:15] LABS: ANION GAP 7 (6-14); BLOOD UREA NITROGEN 14 mg/dL (7-20); CALCIUM 8.8 mg/dL (8.5-10.1); CARBON DIOXIDE 28 mmol/L (21-32); CHLORIDE 106 mmol/L (98-107); CREATININE 0.7 mg/dL (0.6-1.0); GFR 88.2; GLUCOSE 252 mg/dL (70-99); POTASSIUM 3.6 mmol/L (3.5-5.1); SODIUM 141 mmol/L (136-145)
[2017-07-03] MEDS: LACTOBACILLUS RHAMNOSUS GG 1 CAPSULE. PO ×2 (11:57→20:55)
[2017-07-03] MEDS: ASPIRIN 325 MG TABLET PO (11:57)
[2017-07-03] MEDS: FAMOTIDINE 20 MG TABLET. PO ×2 (11:58→20:55)
[2017-07-03] MEDS: ENOXAPARIN 40 MG/0.4 ML SYRINGE. SQ (11:58)
[2017-07-03] MEDS: cefTRIAXone IV Push 2 GM VIAL. IVP (11:59)
[2017-07-03 12:47] LABS: SEDIMENTATION RATE 28 (0-25)
[2017-07-03] MEDS: IV 1/2 NORMAL SALINE 1,000 ML IV (13:49)
[2017-07-03] MEDS: LISINOPRIL 5 MG TABLET. PO (15:01)
[2017-07-03] MEDS: NITROGLYCERIN 0.1MG/HR PATCH. TD (15:02)
[2017-07-03] MEDS: METOPROLOL SUCC 24HR ER 50 MG TAB.ER.24H. PO (15:02)
[2017-07-03] MEDS: FUROSEMIDE 40 MG/4 ML VIAL. IVP (15:02)
[2017-07-03 16:21] LABS: POC GLUCOSE 449 mg/dL (70-99)
[2017-07-03 16:29] LABS: POC GLUCOSE 443 mg/dL (70-99)
[2017-07-03] MEDS: ATORVASTATIN CALCIUM 20 MG TABLET PO (20:55)
[2017-07-03] MEDS: INSULIN GLARGINE 300 UNITS/3 ML INSULN.PEN. SQ (21:09)
[2017-07-03 21:11] LABS: POC GLUCOSE 259 mg/dL (70-99)
[2017-07-04] MEDS: DEXTROSE 50% 25 GM / 50ML DISP.SYRIN. IV (07:28)
[2017-07-04] MEDS: INSULIN LISPRO 300 UNITS/3 ML INSULN.PEN. SQ ×4 (07:30→12:16)
[2017-07-04 07:37] LABS: POC GLUCOSE 47 mg/dL (70-99)
[2017-07-04] MEDS: ASPIRIN 325 MG TABLET PO (07:41)
[2017-07-04 07:53] LABS: POC GLUCOSE 114 mg/dL (70-99)
[2017-07-04] MEDS: LACTOBACILLUS RHAMNOSUS GG 1 CAPSULE. PO (08:40)
[2017-07-04] MEDS: FAMOTIDINE 20 MG TABLET. PO (08:41)
[2017-07-04] MEDS: NITROGLYCERIN 0.1MG/HR PATCH. TD (08:43)
[2017-07-04] MEDS: LISINOPRIL 5 MG TABLET. PO (08:45)
[2017-07-04] MEDS: METOPROLOL SUCC 24HR ER 50 MG TAB.ER.24H. PO (08:45)
[2017-07-04] MEDS: cefTRIAXone IV Push 2 GM VIAL. IVP (08:46)
[2017-07-04] MEDS: FUROSEMIDE 40 MG/4 ML VIAL. IVP (08:46)
[2017-07-04] MEDS: VANCOMYCIN 125 MG/2.5 ML ORAL SOLUTION. PO ×2 (08:54→12:00)
[2017-07-04] MEDS: ENOXAPARIN 40 MG/0.4 ML SYRINGE. SQ (11:59)
[2017-07-04 12:14] LABS: POC GLUCOSE 198 mg/dL (70-99)
[2017-07-04] MEDS: HYDROcodone/APAP 5/325MG 1 TAB TABLET PO (13:43)
[2017-07-04] MEDS ORDERED: CEFPODOXIME PROXETIL 100 MG TABLET. PO (21:00)
[2017-07-04] MEDS ORDERED: INSULIN GLARGINE 300 UNITS/3 ML INSULN.PEN. SQ (21:00)
== END 2017-07-04 15:25 | DRG 853 ==
LOC: 2 NORTH 07-01 16:39 → ER 19:01 → 1 WEST ICU 22:00
PROC: 0HB6XZZ Excision of Back Skin, External Approach (ICD-10-PCS; 2017-06-20 14:45)
PROC: 0JCM0ZZ Extirpation of Matter from Left Upper Leg Subcutaneous Tissue and Fascia, Open Approach (ICD-10-PCS; 2017-06-20 14:45)
PROC: 0HBNXZZ Excision of Left Foot Skin, External Approach (ICD-10-PCS; 2017-06-20 14:45)
PROC: 5A1955Z Respiratory Ventilation, Greater than 96 Consecutive Hours (ICD-10-PCS; principal; 2017-06-20 15:56)
PROC: 0B9 Respiratory System, Drainage (ICD-10-PCS; 2017-06-20 15:56)
PROC: 0BH17EZ Insertion of Endotracheal Airway into Trachea, Via Natural or Artificial Opening (ICD-10-PCS; 2017-06-20 15:56)
PROC: 0B9 Respiratory System, Drainage (ICD-10-PCS; 2017-06-20 15:56)
DX: A41.9 Sepsis, unspecified organism (principal); I21.4 Non-ST elevation (NSTEMI) myocardial infarction; J96.01 Acute respiratory failure with hypoxia; K72.00 Acute and subacute hepatic failure without coma; N17.0 Acute kidney failure with tubular necrosis; I50.43 Acute on chronic combined systolic (congestive) and diastolic (congestive) heart failure; E11.10 Type 2 diabetes mellitus with ketoacidosis without coma; A04.72 Enterocolitis due to Clostridium difficile, not specified as recurrent; J18.9 Pneumonia, unspecified organism; I11.0 Hypertensive heart disease with heart failure; G93.41 Metabolic encephalopathy; R65.21 Severe sepsis with septic shock; R57.0 Cardiogenic shock; I42.9 Cardiomyopathy, unspecified; L97.429 Non-pressure chronic ulcer of left heel and midfoot with unspecified severity; L97.809 Non-pressure chronic ulcer of other part of unspecified lower leg with unspecified severity; D64.9 Anemia, unspecified; E11.51 Type 2 diabetes mellitus with diabetic peripheral angiopathy without gangrene; E11.621 Type 2 diabetes mellitus with foot ulcer; E11.622 Type 2 diabetes mellitus with other skin ulcer; E66.01 Morbid (severe) obesity due to excess calories; E78.5 Hyperlipidemia, unspecified; E83.42 Hypomagnesemia; E87.5 Hyperkalemia; F91.9 Conduct disorder, unspecified; I25.10 Atherosclerotic heart disease of native coronary artery without angina pectoris; L97.529 Non-pressure chronic ulcer of other part of left foot with unspecified severity; S70.12XA Contusion of left thigh, initial encounter; X58.XXXA Exposure to other specified factors, initial encounter; S90.32XA Contusion of left foot, initial encounter; S30.1XXA Contusion of abdominal wall, initial encounter; R13.10 Dysphagia, unspecified; Z86.73 Personal history of transient ischemic attack (TIA), and cerebral infarction without residual deficits; Z88.0 Allergy status to penicillin; Z91.19 Patient's noncompliance with other medical treatment and regimen; Z68.37 Body mass index [BMI] 37.0-37.9, adult; Z91.040 Latex allergy status; Y93.89 Activity, other specified; Y92.89 Other specified places as the place of occurrence of the external cause; Y99.8 Other external cause status
CPT/HCPCS: 31500; 31622; 36415; 36600; 51702; 70450; 71045; 74018; 74230; 78452; 80048; 80053; 80061; 80076; 80202; 80307; 81001; 82010; 82150; 82310; 82553; 82805; 82947; 82962; 83605; 83735; 83880; 84100; 84484; 85007; 85025; 85027; 85520; 85610; 85651; 85730; 86360; 86850; 86900; 86901; 87040; 87070; 87102; 87116; 87205; 87324; 87536; 87641; 92526-GN; 92610-GN; 92611-GN; 92950; 93005; 93017; 93306; 93926; 94002; 94003; 94760; 95816; 96365; 96368; 96374; 96375; 97110-GO; 97116-GP; 97163-GP; 97167-GO; 97530-GO; 97530-GP; 97535-GO; 99291-25; 99292; A9500; J0690; J0696; J1630; J1644; J1650; J1815; J1940; J1956; J2060; J2185; J2248; J2250; J2405; J2704; J2785; J2920; J3010; J3370; J3475; J3480; J3490; J7030; J7042; P9045; S0028

== ENCOUNTER → 2017-07-09 | Outpatient (CLI) | payer OTHER, MEDICAID | END | disposition home or self-care (01) | LOC: PMGWOUND 09:53 | DX: T81.31XA Disruption of external operation (surgical) wound, not elsewhere classified, initial encounter (principal); E11.621 Type 2 diabetes mellitus with foot ulcer; L97.421 Non-pressure chronic ulcer of left heel and midfoot limited to breakdown of skin; E11.622 Type 2 diabetes mellitus with other skin ulcer; L97.222 Non-pressure chronic ulcer of left calf with fat layer exposed; I87.2 Venous insufficiency (chronic) (peripheral); I70.202 Unspecified atherosclerosis of native arteries of extremities, left leg; E11.51 Type 2 diabetes mellitus with diabetic peripheral angiopathy without gangrene; I25.10 Atherosclerotic heart disease of native coronary artery without angina pectoris; E78.5 Hyperlipidemia, unspecified; E11.10 Type 2 diabetes mellitus with ketoacidosis without coma; I11.0 Hypertensive heart disease with heart failure; I50.43 Acute on chronic combined systolic (congestive) and diastolic (congestive) heart failure; I25.2 Old myocardial infarction; E66.01 Morbid (severe) obesity due to excess calories; Z87.891 Personal history of nicotine dependence; Z79.4 Long term (current) use of insulin; Z68.42 Body mass index [BMI] 45.0-49.9, adult; Y83.8 Other surgical procedures as the cause of abnormal reaction of the patient, or of later complication, without mention of misadventure at the time of the procedure | CPT/HCPCS: 97597; 97598; 97606 ==